=== PATIENT | female | born 1980 | race Two or more races ===

== ENCOUNTER 2018-09-06 15:41 | Emergency (ER) | payer BC ==
--- NOTE | 2018-09-06 16:19 | UC ---
Skin Complaint HPI - HPI Summary HPI Summary: 38-year-old woman comes in with a chief complaint of numbness in the right anterior thigh. Over the last 2 days patient was doing a lot of work in her garden and she's bending forward at the waist a lot. Last night around 5:30 PM she noticed some numbness in the right anterior thigh. This is not gone away since then. Denies any weakness or numbness or any loss of control of bowel or bladder. Patient says this has happened in the past but usually the numbness goes away within an hour. No other neurologic symptoms. - History of Current Complaint Time Seen by Provider: 09/06/18 16:01 Stated Complaint: RIGHT THIGH TINGLING, OR NUMB PMH/Surg Hx/FS Hx/Imm Hx Previously Healthy: Yes - Family History Known Family History: Positive: Non-Contributory Review of Systems All Other Systems Reviewed And Are Negative: Yes Constitutional: Positive: Negative Skin: Positive: Other - SEE HPI Eyes: Positive: Negative ENT: Positive: Negative Respiratory: Positive: Negative Cardiovascular: Positive: Negative Gastrointestinal: Positive: Negative Motor: Positive: Negative. Negative: Decreased ROM, Weakness Neurovascular: Positive: Decreased Sensation Musculoskeletal: Positive: Negative Neurological: Positive: Paresthesia, Numbness. Negative: Weakness Psychological: Positive: Negative Is Patient Immunocompromised?: No Physical Exam Triage Information Reviewed: Yes Appearance: Well-Appearing, No Pain Distress, Well-Nourished Vital Signs Reviewed: Yes Eye Exam: Normal Eyes: Positive: Conjunctiva Clear Neck: Positive: Supple Respiratory: Positive: No respiratory distress Musculoskeletal: Positive: Strength Intact, ROM Intact Neurological: Positive: Alert, Muscle Tone Normal, Other: - Decreased sensation in the right anterior thigh in the distribution of the right lateral femoral cutaneous nerve. No other focal neurologic deficits. Strength 5 out of 5 bilaterally. Psychological Exam: Normal Psychological: Positive: Age Appropriate Behavior Skin: Positive: Other - Decreased sensation in the right anterior thigh in the distribution of the right lateral femoral cutaneous nerve. Course/Dx - Diagnoses Provider Diagnosis: Lateral cutaneous femoral nerve of thigh compression or syndrome Discharge - Sign-Out/Discharge Documenting (check all that apply): Patient Departure All imaging exams completed and their final reports reviewed: No Studies - Discharge Plan Condition: Stable Disposition: HOME Patient Education Materials: Paresthesia (ED) Referrals: Carlie Constantino MD [Primary Care Provider] - Additional Instructions: FOLLOW UP WITH YOUR DOCTOR ON 09/14/18 SCHEDULED. ICE THE AREA. IBUPROFEN DIRECTED NEEDED. GET RECHECKED SOONER IF YOUR CONDITION WORSENS; WEAKNESS, WORSENING NUMBNESS OR ANY QUESTIONS OR CONCERNS. - Billing Disposition and Condition Condition: STABLE Disposition: Home
[2018-09-06 16:32] VITALS: BP 117/69
== END 2018-09-06 16:34 | disposition home or self-care (01) ==
LOC: UCEAST 15:41
DX: G57.21 Lesion of femoral nerve, right lower limb (principal)
CPT/HCPCS: 99211; G0463

== ENCOUNTER 2021-10-13 15:59 | Inpatient (IN) ==
[2021-10-13] MEDS ORDERED: Buffered Lidocaine 1% SYRIN 1 ml INTRADERM ONE (18:44)
[2021-10-13] MEDS ORDERED: Lactated Ringers 1000 ml BAG 1,000 ML IV ONE (18:44)
[2021-10-13] MEDS ORDERED: Lactated Ringers 1000 ml BAG 1,000 ML IV SCH (19:00)
[2021-10-13 21:08] LABS: Urine Appearance Clear; Urine Bilirubin Negative (Negative); Urine Blood 1+ (Small) (Negative); Urine Color Yellow; Urine Glucose Negative (Negative); Urine Ketones Negative (Negative); Urine Nitrite Negative (Negative); Urine Protein Negative (Negative); Urine Specific Gravity 1.021 (1.002-1.030); Urine Urobilinogen 0.2 (Negative) (Negative)
[2021-10-13 21:22] LABS: Urine Benzodiazepine Screen None Detected (None Detect); Urine Cannabinoids Screen None Detected (None Detect); Urine Opiates Screen None Detected (None Detect)
[2021-10-13 21:23] LABS: Urine Bacteria 1+ (Absent); Urine Red Blood Cell Trace(0-2/hpf) (Absent); Urine Squamous Epithelial Cell Present (Absent); Urine White Blood Cell Trace(0-5/hpf) (Absent)
[2021-10-13] MEDS ORDERED: Promethazine INJ(RESTRICTED) 25 MG/ML 1 ml VIAL IM PRN (22:05)
[2021-10-13] MEDS ORDERED: Nalbuphine 10 MG/ML 1 ML VIAL IM PRN (22:05)
[2021-10-14] MEDS ORDERED: Dinoprostone 10 MG VAG.SUPP VAGINAL ONE (10:51)
[2021-10-15] MEDS ORDERED: Oxytocin in LR 20,000 MILLI.UNIT/1,000 ML BAG IV SCH (09:45)
[2021-10-15 09:58] LABS: Hematocrit 38 % (35-47); Hemoglobin 13.4 g/dL (12.0-16.0); Mean Corpuscular HGB Conc 36 g/dL (31-36); Mean Corpuscular Hemoglobin 33 pg (27-31); Mean Corpuscular Volume 92 fL (80-97); Mean Platelet Volume 10.2 fL (7.4-10.4); Platelet Count 209 10^3/uL (150-450); Red Blood Count 4.11 10^6 /uL (3.70-4.87); Red Cell Distribution Width 21 % (10-15); White Blood Count 8.3 10^3/uL (3.5-10.8)
[2021-10-15 10:48] LABS: ABS Lymphocytes 1.3 10^3/ul (1.0-4.8); ABS Monocytes 0.2 10^3/ul (0-0.8); ABS Neutrophils 6.6 10^3/ul (1.5-7.7); Eosinophil % 0.4 %; Lymphocyte % 16.3 %; Nucleated Red Blood Cells % 0.1
[2021-10-15] MEDS ORDERED: Lidocaine 2% w/ EPI 1:200,000 MPF 20 ML SDV VIAL ONE (13:26)
[2021-10-15] MEDS ORDERED: OBEPIDURAL (200 ML) 200 ML EPIDURAL ONE (13:26)
[2021-10-15] MEDS ORDERED: Penicillin G Potassium IV 5,000,000 UNITS in NS 0.9% 100 ml BAG 100 ML IVPB ONE (15:30)
[2021-10-15] MEDS ORDERED: Sodium Citrate/Citric Acid LIQ 15 ML UDC PO PRN (15:34)
[2021-10-15] MEDS ORDERED: Lactated Ringers 1000 ml BAG 1,000 ML IV ONE (15:34)
[2021-10-15] MEDS ORDERED: Phenylephrine 40 mcg/mL 10mL (400mcg) SYRINGE IV PUSH PRN ×2 (15:34)
[2021-10-15] MEDS ORDERED: Lactated Ringers 1000 ml BAG 500 ML IV PRN ×2 (15:34)
[2021-10-15] MEDS ORDERED: Lactated Ringers 1000 ml BAG 1,000 ML IV SCH (16:00)
[2021-10-15] MEDS ORDERED: Bupivacaine 0.25% SDV PF 10 ML VIAL INJ ONE ×3 (18:35→23:08)
[2021-10-15] MEDS: Penicillin G Potassium IV 3,000,000 UNITS in NS 0.9% 100 ml BAG 100 ML IVPB SCH ×2 (19:30→23:36)
[2021-10-15] MEDS: OBEPIDURAL (200 ML) 200 ML EPIDURAL SCH ×2 (20:04→20:57)
[2021-10-15] MEDS ORDERED: fentaNYL 100 mcg/2 ml 50 MCG/ML VIAL ONE (23:08)
[2021-10-16] MEDS: OBEPIDURAL (200 ML) 200 ML EPIDURAL SCH (02:13)
[2021-10-16] MEDS ORDERED: ceFOXitin 2 GM IVPREMIX 2 GM/50 ML BAG ONE (03:39)
[2021-10-16] MEDS ORDERED: Lidocaine 2% w/ EPI 1:200,000 MPF 20 ML SDV VIAL ONE (03:50)
[2021-10-16] MEDS ORDERED: fentaNYL 100 mcg/2 ml 50 MCG/ML VIAL ONE (04:12)
[2021-10-16] MEDS ORDERED: Phenylephrine 40 mcg/mL 10mL (400mcg) SYRINGE ONE ×2 (04:16→04:47)
[2021-10-16] MEDS ORDERED: Oxytocin 10 UNITS/ML 1 ML VIAL ONE (04:22)
[2021-10-16] MEDS ORDERED: Metoclopramide 5 MG/ML VIAL (10 mg) ONE (04:31)
[2021-10-16] MEDS ORDERED: Carboprost Tromethamine 250 mcg 1 ml VIAL ONE (04:40)
[2021-10-16] MEDS ORDERED: Naloxone 0.4 mg VIAL 0.4 mg/ml 1 ml VIAL IV PRN (04:49)
[2021-10-16] MEDS ORDERED: Ondansetron 4 mg VIAL 2 MG/ML 2 ml VIAL IV PRN (04:49)
[2021-10-16] MEDS ORDERED: Dibucaine 1% OINT 28.35 GM TUBE PR PRN (05:23)
[2021-10-16] MEDS ORDERED: Witch Hazel PAD JAR TOPICAL PRN (05:23)
[2021-10-16] MEDS ORDERED: Glycerin ADULT 2.4 gm SUPP PR PRN (05:23)
[2021-10-16] MEDS ORDERED: Methylergonovine 0.2 mg AMPULE 1 ml AMP ONE (05:35)
[2021-10-16] MEDS ORDERED: Lactated Ringers 1000 ml BAG 1,000 ML IV SCH (06:00)
[2021-10-16] MEDS: Penicillin G Potassium IV 3,000,000 UNITS in NS 0.9% 100 ml BAG 100 ML IVPB SCH (07:01)
[2021-10-16] MEDS: Oxytocin in LR 20,000 MILLI.UNIT/1,000 ML BAG IV SCH ×2 (07:05→09:55)
[2021-10-17 07:00] LABS: Hematocrit 27 % (35-47); Hemoglobin 9.7 g/dL (12.0-16.0); Mean Corpuscular HGB Conc 35 g/dL (31-36); Mean Corpuscular Hemoglobin 33 pg (27-31); Mean Corpuscular Volume 94 fL (80-97); Mean Platelet Volume 10.8 fL (7.4-10.4); Platelet Count 162 10^3/uL (150-450); Red Blood Count 2.91 10^6 /uL (3.70-4.87); Red Cell Distribution Width 20 % (10-15)
[2021-10-17 09:59] LABS: ABS Eosinophils 0.1 10^3/ul (0-0.6); ABS Lymphocytes 1.4 10^3/ul (1.0-4.8); ABS Monocytes 0.4 10^3/ul (0-0.8); ABS Neutrophils 8.1 10^3/ul (1.5-7.7); Eosinophil % 1.1 %; Lymphocyte % 13.7 %
[2021-10-19 09:03] VITALS: BP 107/67
== END 2021-10-19 13:10 | disposition home or self-care (01) | DRG 540 ==
LOC: MCHOBOUT 15:59 → MCHOB 18:16
PROVIDERS: ADMIT Midwife; ATTEND Obstetrics & Gynecology

== ENCOUNTER 2023-05-10 16:03 | Observation (INO) ==
[2023-05-10] MEDS: Morphine 4 MG/ML VIAL (1 ml) IV ONE (16:42)
[2023-05-10] MEDS: Ondansetron 4 mg VIAL 2 MG/ML 2 ml VIAL IV ONE (16:42)
[2023-05-10 17:02] LABS: ABS Eosinophils 0.1 10^3/uL (0.0-0.5); ABS Lymphocytes 1.3 10^3/uL (1.0-4.8); ABS Monocytes 0.3 10^3/uL (0.0-0.9); ABS Neutrophils 3.3 10^3/uL (1.5-7.6); Eosinophil % 1.8 %; Hematocrit 34.6 % (35-45); Hemoglobin 11.6 g/dL (11.5-14.3); Lymphocyte % 26.1 %; Mean Corpuscular Hemoglobin 29.3 pg (27-33); Mean Corpuscular Hgb Conc 33.5 g/dL (31-36); Mean Corpuscular Volume 87.4 fL (80-97); Mean Platelet Volume 9.4 fL (7.5-11.2); Nucleated Red Blood Cells % 0.1 %/100WBC (0.0-0.8); Platelet Count 288 10^3/uL (150-450); Red Blood Count 3.96 10^6/uL (3.63-4.92); Red Cell Distribution Width 15.3 % (12-17); White Blood Count 5.1 10^3/uL (3.8-11.8)
[2023-05-10 17:43] LABS: C Reactive Protein 6.32 mg/L (<8.01); Calcium 8.6 mg/dL (8.6-10.3); Creatinine, Serum 0.65 mg/dL (0.51-0.95); Potassium 3.6 mmol/L (3.5-5.0); eGFR CKD-EPI 114.1 (>60)
[2023-05-10 17:48] LABS: Albumin 4.1 g/dL (3.2-5.2); Albumin/Globulin Ratio 1.3 (1-3); Globulin 3.1 g/dL (2-4); Total Protein 7.2 g/dL (6.4-8.9)
[2023-05-10] MEDS ORDERED: Ondansetron 4 mg VIAL 2 MG/ML 2 ml VIAL IV PRN (19:22)
[2023-05-10] MEDS ORDERED: HYDROmorphone 0.5 MG/0.5 ML SYRINGE IV SLOW PU PRN (19:36)
[2023-05-10] MEDS: Piperacillin/Tazobac 3.375 BAG 3.375 GM/100 ML BAG IV ONE (20:08)
[2023-05-10] MEDS: D5W 1/2 NS 40 Meq KCL 1000 ml 1,000 ML IV SCH (20:47)
[2023-05-10] MEDS: Piperacillin/Tazobac 3.375 BAG 3.375 GM/100 ML BAG IV SCH (23:57)
[2023-05-11 05:58] LABS: ABS Eosinophils 0.1 10^3/uL (0.0-0.5); ABS Lymphocytes 1.3 10^3/uL (1.0-4.8); ABS Monocytes 0.3 10^3/uL (0.0-0.9); ABS Neutrophils 2.4 10^3/uL (1.5-7.6); Eosinophil % 2.5 %; Hematocrit 33.6 % (35-45); Hemoglobin 11.1 g/dL (11.5-14.3); Lymphocyte % 31.2 %; Mean Corpuscular Hemoglobin 29.1 pg (27-33); Mean Corpuscular Hgb Conc 33.1 g/dL (31-36); Mean Platelet Volume 9.4 fL (7.5-11.2); Nucleated Red Blood Cells % 0.1 %/100WBC (0.0-0.8); Platelet Count 264 10^3/uL (150-450); Red Blood Count 3.81 10^6/uL (3.63-4.92); Red Cell Distribution Width 15.2 % (12-17); White Blood Count 4.2 10^3/uL (3.8-11.8)
[2023-05-11 06:29] LABS: Calcium 7.9 mg/dL (8.6-10.3); Creatinine, Serum 0.62 mg/dL (0.51-0.95); Potassium 4.4 mmol/L (3.5-5.0); eGFR CKD-EPI 115.4 (>60)
[2023-05-11 06:33] LABS: Albumin 3.5 g/dL (3.2-5.2); Albumin/Globulin Ratio 1.4 (1-3); Globulin 2.5 g/dL (2-4); Total Bilirubin 1.2 mg/dL (0.2-1.0)
[2023-05-11] MEDS ORDERED: Propofol 10 MG/ML 20 ML BTL ONE (09:28)
[2023-05-11] MEDS ORDERED: Lidocaine 2% PF 5 ML VIAL ONE (09:28)
[2023-05-11] MEDS ORDERED: Rocuronium 50 mg VIAL 10 mg/ml 5 ml VIAL (50 mg) ONE (09:29)
[2023-05-11] MEDS ORDERED: Midazolam 2 mg/2 ml VIAL 1 mg/ml 2 ml VIAL (2 mg) ONE (09:29)
[2023-05-11] MEDS ORDERED: fentaNYL 100 mcg/2 ml 50 MCG/ML VIAL ONE ×3 (09:29→12:43)
[2023-05-11] MEDS ORDERED: Scopolamine 1 mg/72hr PATCH TRANSDERM ONE (09:30)
[2023-05-11] MEDS ORDERED: Buffered Lidocaine 1% SYRIN 1 ml INTRADERM ONE (09:30)
[2023-05-11] MEDS ORDERED: Naloxone 0.4 mg VIAL 0.4 mg/ml 1 ml VIAL IV PRN ×2 (09:31)
[2023-05-11] MEDS ORDERED: Bupivacaine 0.25% EPI 200,000 30 ML SDV ONE (09:47)
[2023-05-11] MEDS ORDERED: Lactated Ringers 1000 ml BAG 1,000 ML IV SCH (10:00)
[2023-05-11] MEDS ORDERED: Ondansetron 4 mg VIAL 2 MG/ML 2 ml VIAL ONE (11:09)
[2023-05-11] MEDS ORDERED: Dexamethasone IV 4 MG/ML VIAL 1 ml VIAL ONE (11:09)
[2023-05-11] MEDS: fentaNYL 100 mcg/2 ml 50 MCG/ML VIAL IV PRN (12:44)
[2023-05-11 14:57] VITALS: BP 151/73
== END 2023-05-11 15:08 | disposition home or self-care (01) ==
LOC: ED 16:03 → EDHOLD 16:03 → SSU 21:21
PROVIDERS: ADMIT Surgery; ATTEND Surgery